=== PATIENT | female | born 1985 | race Caucasian/White ===

== ENCOUNTER → 2023-11-22 | Outpatient (CLI) | payer OTHER, SELFPAY ==
[2023-11-28 14:49] LABS: HPV APTIMA, High Risk Negative (Negative)
== END | disposition home or self-care (01) ==
LOC: LABSPEC 11:42
PROVIDERS: Referring Provider Nurse Practitioner Women's Health; Visit Provider Nurse Practitioner Women's Health
DX: Z87.42 Personal history of other diseases of the female genital tract (principal)
CPT/HCPCS: 87624; 88175; G0145